=== PATIENT | male | born 1965 | race Caucasian/White ===

== ENCOUNTER 2017-11-15 15:14 | Outpatient (RCR) | payer OTHER, SELFPAY ==
--- NOTE | 2017-11-17 15:11 | ST.OPIE ---
Provider Information Visit Care Team Role Provider Type Marcin Mclaughlin MD Family Provider Non-Staff Primary Care Provider Specialty: Medical Address: [address] [place] [address] [address], [place], [address] Email: SAL Alaniz Attending Provider Non-Staff Specialty: Medical Address: [address] [place] [address], [id number] Email: Speech-Language Pathology Initial Evaluation COMM[employer]ICATIONS [employer]BER Clinical Swallow Evaluation Start: 11/16/17 16:04 Freq: Status: Active Protocol: Activity Type Activity Date Activity User E-Sign Co-Sign Detail Recorded Client Recorded Date Recorded By Document 11/16/17 16:04 ARTURO [email or web address] 11/16/17 17:14 ARTURO 11/16/17 16:04 Clinical Swallow Evaluation [Session Time] -Visit Start Time 15:30 -Visit Stop Time 16:30 -Total Visit Minutes 60 [Visit Information] -Visit Number Eval -Insurance Information [employer] $40 copay [Referral] -Referring Physician SAL Wills -Reason for Referral Persistent cough [Setting] -Assessment Location Outpatient Care [Visit Type] -Note Type Initial Evaluation [Next Note Type] -Next Note Type Treatment Note [Patient Information] -Identification Type Name -History Case history obtained from patient and friend, Veronica . Parkinson's disease: Onset of symptoms in right upper limb 01/2010, diagnosis 2010. Bilateral DBS placement at [facility] in 2013, with adjustment of right side in 2016. The pt experiences persistent cough throughout the day and increase at night. Does not increase with oral intake. To subdue coughing, the pt breathes slowly through his nose. If cough is not subdued, it often becomes extensive to the point that his face turns red and he feels he is unable to breathe. The pt reported recent chest x- ray indicating good pulmonary health. No known allergies. 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 He was daily in the presence of airborne debris without mask or other airway protection. -Subjective Observations The pt exhibited coughing frequently throughout the evaluation with moderate success of subduing it with deep breath strategies. [Evaluation] -Liquids Trialed Thin -Solids Trialed Puree Dysphagia Mechanical Dysphagia Advanced Mechanical Soft Regular -Administration Type Cup Single Sip Self-Feeding -Oral Impairment WFL -Oral Strategies Upright at 90 degrees -Oral Phase Comments Increased coughing observed with dry, crumbly cookie prior to swallow, indicating possible reduced posterior oral containment and early entry to pharynx. Otherwise, oral phase was WNL. -Pharyngeal Impairment Mildly Impaired -Pharyngeal Phase Strategies Sitting Upright (90 deg) Effortful Swallow -Pharyngeal Phase Comments Increased coughing observed with dry, crumbly cookie prior to swallow, indicating potential penetration of food particles into laryngeal vestibule or other pharyngeal sensory cough trigger. No other s/sx of aspiration were observed. The pt maintained clear vocal quality throughout trials. No indication of significant pharyngeal residue was noted. The pt pointed to the area at and around his larynx and stated that it felt stressed and scratchy both with and without swallow . [Findings] -Dysphagia Type Minimal oropharyngeal -Rehabilitation Potential Good -Impressions The pt exhibits swallow function largely WNL. Coughing was present throughout the evaluation but did increase notably with intake of a dry , crumbly cookie, which may indicate reduced posterior oral containment and airway protection. Coughing was less but still present with trials of foods with increased moisture. The pt's description and presentation of cough symptoms, as well as success with slow, deep breathing strategies, is consistent with symptoms and management of laryngospasm. The pt was unable to identify distinct cough triggers. While oral intake may contribute to some degree, dysphagia does not appear to be the primary cause of persistent coughing. Question if trigger may be sensory in nature or neurologic secondary to Parkinson's disease. [Diet Recommendations] -Liquids Order Thin -Diet Order Regular -Medication Recommendations As Tolerated -Comments Foods to be moist; avoid dry, crumbly textures. [Aspiration Precautions] -Recommended Precautions Upright at 90 Degrees Small Bites/ Sips Effortful Swallow -Additional Precautions Do not eat or drink while coughing. Wait 1 or more minutes. [Treatment Plan] -Placement Recommendations after Home Discharge -Appropriate for Therapy Yes -Therapy Recommendations Diet recommendations as listed above. Recommend Referral to ENT for laryngoscopy and videostroboscop y of vocal folds to assess condition of tissues, identify potential cough trigger (e.g., vocal onset, potential GERD) , and assess for presence of spasm. -Dysphagia Goals 1. Pt will tolerate regular diet with added moisture and thin liquids with effortful swallow with no overt s/sx of aspiration. 2. Pt will follow safe swallow strategies to reduce risk of aspiration during oral intake. 3. Pt will use slow, deep breathing strategies to minimize frequency and intensity of cough not related to p.o. intake. 4. Pt will participate in ENT evaluation to guide POC. 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 [Referrals/Other] -Recommended Referrals ENT Consult [employer]ICATIONS [employer]BER Oral Motor Exam Start: 11/16/17 16:04 Freq: Status: Active Protocol: Activity Type Activity Date Activity User E-Sign Co-Sign Detail Recorded Client Recorded Date Recorded By Document 11/16/17 17:15 ARTURO [email or web address] 11/16/17 17:16 ARTURO 11/16/17 17:15 Oral Motor Examination [Face] -Facial Symmetry Symmetrical -Facial Movement Controlled [Mouth] -Teeth Characteristics Intact/Normal -Pucker Lips Normal -Smile Normal -Puff Cheeks Normal -Tongue Size Normal [Tongue Movement] Tip Down -Tongue Comment WNL Tip Up -Tongue Comment WNL Side to Side -Tongue Comment WNL Protrusion -Tongue Comment WNL [Palate and Pharynx] -Soft Palate Description Normal Normal Color Normal Arch Normal Symmetry -Hard Palate Description Normal -Velopharyngeal Movement Normal Please Sign and Return: I have reviewed this Plan of Care and certify that the skilled therapy services above are required to meet the patient???s needs. Physician Signature Date Printed Name and Credentials
== END 2018-06-16 14:04 ==
LOC: SP 15:14
PROVIDERS: Family Provider Family Medicine; PCP Family Medicine; Visit Provider Nurse Practitioner
DX: R13.12 Dysphagia, oropharyngeal phase (principal); G20 Parkinson's disease
CPT/HCPCS: 92526; 92610